=== PATIENT | female | born 1955 | race Caucasian/White ===

== ENCOUNTER → 2017-12-22 | Outpatient (CLI) | payer BC ==
--- NOTE | 2017-12-23 09:41 | MM ---
Reason for exam: screening (asymptomatic). Last mammogram was performed 3 years ago. History: Patient is postmenopausal, has history of high-risk lesion on a previous biopsy at age 59, and is nulliparous. Family history of breast cancer in sister at age 70. High risk MG stereo VAD BX LT of the left breast, December 10, 2014. Benign excisional biopsy of the right breast, 1999. Benign cyst aspiration of the right breast, 1973. Physical Findings: A clinical breast exam by your physician is recommended on an annual basis and results should be correlated with mammographic findings. MG 3D Screening Mammo W/Cad Bilateral CC and MLO view(s) were taken. Prior study comparison: December 09, 2014, left breast MG work up mamm w CAD LT. November 26, 2014, bilateral MG screening mammo w CAD. The breast tissue is extremely dense which could obscure a lesion on mammography. There are benign appearing grouped calcifications bilaterally. ASSESSMENT: Incomplete: need additional imaging evaluation, BI-RAD 0 RECOMMENDATION: Special view mammogram of both breasts. [facility] will attempt to contact patient to return for supplemental views.
== END | disposition home or self-care (01) ==
LOC: RADMAMWWP 13:22
PROVIDERS: ATTEND Internal Medicine Geriatric Medicine
DX: Z12.31 Encounter for screening mammogram for malignant neoplasm of breast (principal)
CPT/HCPCS: 77063; 77067

== ENCOUNTER → 2017-12-23 | Outpatient (CLI) | payer BC ==
--- NOTE | 2017-12-23 14:19 | MM ---
Reason for exam: additional evaluation requested from abnormal screening. Last mammogram was performed less than 1 month ago. History: Patient is postmenopausal, has history of high-risk lesion on a previous biopsy at age 59, and is nulliparous. Family history of breast cancer in sister at age 70. High risk MG stereo VAD BX LT of the left breast, December 10, 2014. Benign excisional biopsy of the right breast, 1999. Benign cyst aspiration of the right breast, 1973. Physical Findings: Nurse did not find any significant physical abnormalities on exam. MG 3D Work Up W/Cad ROVERTO Bilateral CC with magnification and LM view(s) were taken. Prior study comparison: December 22, 2017, bilateral MG 3d screening mammo w/cad. December 09, 2014, left breast MG work up mamm w CAD LT. The breast tissue is heterogeneously dense. This may lower the sensitivity of mammography. Finding #1: There are grouped/clustered calcifications in the outer quadrant, central position of the left breast. Finding #2: There are grouped/clustered calcifications in the posterior lateral position of the right breast. Previous mammotome biopsy in the left breast. These results were verbally communicated with the patient and result sheet given to the patient on 12/23/17. ASSESSMENT: Suspicious, BI-RAD 4 RECOMMENDATION: Surgical consultation of both breasts. Stereotactic core biopsy of the right breast. Localization and excision of the left breast. Patient leaving for [facility] 12/27/17, will follow up with surgeon there.
== END | disposition home or self-care (01) ==
LOC: RADMAMWWP 12:59
PROVIDERS: ATTEND Internal Medicine Geriatric Medicine
DX: R92.8 Other abnormal and inconclusive findings on diagnostic imaging of breast (principal)
CPT/HCPCS: 77062; 77066